=== PATIENT | male | born 1990 | race Caucasian/White ===

== ENCOUNTER 2017-03-01 09:30 | Emergency (ER) | payer MEDICAID ==
[~2017-03-01] VITALS: Ht 180.3 cm; Wt 70.8 kg
[2017-03-01] MEDS ORDERED: TRAMADOL HCL 50 MG TABLET PO ONE (10:30)
[2017-03-01] MEDS ORDERED: TDAP [DIPH/PERTUSSIS/TET] 0.5 ML VIAL IM ONE ×2 (10:30→11:02)
[2017-03-01] MEDS ORDERED: CEFAZOLIN 1 GM VIAL IM ONE (10:30)
[2017-03-01] MEDS ORDERED: CEFAZOLIN 1 GM ONE (11:02)
[2017-03-01] MEDS ORDERED: TRAMADOL HCL 50 MG TABLET ONE (11:02)
[2017-03-01] MEDS ORDERED: WATER FOR INJECTION,STERILE 10 ML ONE (11:03)
[2017-03-01 12:48] VITALS: BP 110/88
== END 2017-03-01 12:49 | disposition home or self-care (01) ==
LOC: ER 09:32
DX: S61.012A Laceration without foreign body of left thumb without damage to nail, initial encounter (principal); W45.8XXA Other foreign body or object entering through skin, initial encounter; Y93.89 Activity, other specified; Y92.89 Other specified places as the place of occurrence of the external cause; Y99.8 Other external cause status
CPT/HCPCS: 73120; 90471; 90715; 96372; 99284; A4606; A6402; A6403; J0690; Z7610

== ENCOUNTER 2017-06-11 23:08 | Emergency (ER) | payer MEDICAID ==
[~2017-06-11] VITALS: Ht 177.8 cm; Wt 70.8 kg
[2017-06-11 23:12] VITALS: BP 136/58
[2017-06-11] MEDS ORDERED: HYDROCODONE/APAP 5/325MG 1 EACH TABLET PO ONE (23:30)
--- NOTE | 2017-06-11 23:32 | NUR ---
ICE PACK PROVIDED TO PT.
[2017-06-11] MEDS ORDERED: HYDROCODONE/APAP 5/325MG 1 EACH TABLET ONE (23:55)
--- NOTE | 2017-06-12 00:02 | NUR ---
MOSES WRAP APPLIED TO R FOOT PER ER MD ORDER.
== END 2017-06-12 00:06 | disposition home or self-care (01) ==
LOC: ER 23:08
DX: S93.401A Sprain of unspecified ligament of right ankle, initial encounter (principal); S93.601A Unspecified sprain of right foot, initial encounter; W50.1XXA Accidental kick by another person, initial encounter; Y93.89 Activity, other specified; Y92.89 Other specified places as the place of occurrence of the external cause; Y99.8 Other external cause status
CPT/HCPCS: 73610-TC; 73630-TC; A4606; Z7610

== ENCOUNTER 2024-06-27 00:24 | Emergency (ER) | payer SELFPAY ==
[~2024-06-27] VITALS: Ht 180.3 cm; Wt 74.8 kg
[2024-06-27] MEDS ORDERED: LIDOCAINE 1% INJ 50 ML MDV IJ ONE (01:20)
[2024-06-27] MEDS: LIDOCAINE 1% INJ 50 ML MDV IJ ONE (01:30)
[2024-06-27] MEDS: SULFAMETH/TRIMETH 800/160 MG 1 UDTAB TABLET PO ONE (02:00)
[2024-06-27] MEDS: CEPHALEXIN MONOHYDRATE 500 MG CAPSULE PO ONE (02:00)
[2024-06-27] MEDS ORDERED: SULF1TAB48 PO (02:05)
[2024-06-27] MEDS ORDERED: CEPH500C2 PO (02:05)
[2024-06-27] MEDS ORDERED: SULFAMETH/TRIMETH 800/160 MG 1 UDTAB TABLET ONE (02:08)
[2024-06-27] MEDS ORDERED: CEPHALEXIN MONOHYDRATE 500 MG CAPSULE PO ONE (02:08)
[2024-06-27 02:23] VITALS: BP 140/76; TEMP 98.5; O2SAT 100
== END 2024-06-27 02:24 | disposition home or self-care (01) ==
LOC: ER 00:47
DX: L02.415 Cutaneous abscess of right lower limb (principal); L03.115 Cellulitis of right lower limb; M79.661 Pain in right lower leg
CPT/HCPCS: 99284; 10060; J3490

== ENCOUNTER 2024-07-16 18:11 | Emergency (ER) | payer MEDICAID ==
[~2024-07-16] VITALS: Ht 177.8 cm; Wt 72.6 kg
[~2024-07-16 18:11] MED LIST: CEPH500C2 PO; SULF1TAB48 PO
[2024-07-16 18:21] VITALS: BP 128/71; TEMP 98.6
[2024-07-16] MEDS ORDERED: CEPH500C2 PO (20:28)
[2024-07-16] MEDS ORDERED: MUPI22OI2 TP (20:28)
[2024-07-16] MEDS ORDERED: MUPIROCIN OINT 2% 22 GM TUBE ONE (20:31)
[2024-07-16] MEDS ORDERED: CEPHALEXIN MONOHYDRATE 500 MG CAPSULE PO ONE (20:33)
[2024-07-16] MEDS: MUPIROCIN OINT 2% 22 GM TUBE TP ONE (20:41)
[2024-07-16] MEDS: CEPHALEXIN MONOHYDRATE 500 MG CAPSULE PO ONE (20:41)
[2024-07-16 20:54] VITALS: O2SAT 100
== END 2024-07-16 20:55 | disposition home or self-care (01) ==
LOC: ER 18:19
DX: L03.115 Cellulitis of right lower limb (principal)